=== PATIENT | female | born 1990 | race American Indian/Alaskan Native ===

== ENCOUNTER 2022-02-10 14:54 | Emergency (ER) | payer MEDICARE ==
[2022-02-10] MEDS ORDERED: SODIUM CHLORIDE 0.9% 1000 ML 1,000 ML IV ONE (15:48)
--- NOTE | 2022-02-10 15:59 | Emergency Department Report ---
ED Syncope HPI - General Chief Complaint: Syncope Stated Complaint: SYNCOPE Time Seen by Provider: 02/10/22 15:48 Source: patient Exam Limitations: no limitations - History of Present Illness Initial Comments: Patient is a 31-year-old female brought in by EMS after having an syncopal event while at dialysis. Patient states the event occurred while they were attempting to draw blood. States she began to feel hot and the next thing she remembers is EMS standing over her. She denies any previous history of syncope. Denies chest pain or shortness of breath. - Related Data Allergies/Adverse Reactions: Allergies No Known Allergies Allergy (Unverified 02/10/22 15:20) ED Review of Systems ROS: Stated complaint: SYNCOPE Other details as noted in HPI Comment: All other systems reviewed and negative Constitutional: denies: chills, fever Respiratory: denies: cough, shortness of breath, wheezing Cardiovascular: as per HPI. denies: chest pain, palpitations Gastrointestinal: denies: abdominal pain, nausea, diarrhea Musculoskeletal: denies: back pain, joint swelling, arthralgia Skin: denies: rash, lesions Psychiatric: denies: anxiety, depression ED Physical Exam - General Limitations: No Limitations General appearance: alert, in no apparent distress - Head Head exam: Present: atraumatic, normocephalic - Neck Neck exam: Present: normal inspection - Respiratory Respiratory exam: Present: normal lung sounds bilaterally. Absent: respiratory distress - Cardiovascular Cardiovascular Exam: Present: regular rate, normal rhythm, normal heart sounds. Absent: systolic murmur, diastolic murmur, rubs, gallop - GI/Abdominal GI/Abdominal exam: Present: soft. Absent: distended, tenderness - Neurological Exam Neurological exam: Present: alert, oriented X3 - Psychiatric Psychiatric exam: Present: normal affect, normal mood - Skin Skin exam: Present: warm, dry, intact, normal color ED Course Vital Signs 02/10/22 02/10/22 15:15 15:50 Temperature 98.3 F Pulse Rate 74 Respiratory 16 Rate Blood Pressure 127/90 [Left] O2 Sat by Pulse 99 100 Oximetry ED Medical Decision Making - Lab Data Result diagrams: 02/10/22 Unknown 02/10/22 Unknown - Medical Decision Making EKG normal sinus rhythm with rate of 67. No acute findings. Labs reviewed. Creatinine 12.6. Potassium is within normal limits. H&H is 10 and 30. Vital signs remained stable. Suspect likely vasovagal syncope as the patient was sitting down during the incident. She is stable for discharge home with return precautions. Critical care attestation.: If time is entered above; I have spent that time in minutes in the direct care of this critically ill patient, excluding procedure time. ED Disposition Clinical Impression: Syncope Disposition: 01 HOME / SELF CARE / HOMELESS Is pt being admited?: No Does the pt Need Aspirin: No Condition: Stable Instructions: Syncope (ED), Syncope Time of Disposition: 20:01
[2022-02-10 18:47] LABS: Basophils # (Auto) 0.1 K/mm3 (0.0-0.1); Basophils % (Auto) 0.9 % (0.0-1.8); Eosinophils # (Auto) 0.1 K/mm3 (0.0-0.4); Hemoglobin 9.9 gm/dl (10.1-14.3); Lymphocytes # (Auto) 2.9 K/mm3 (1.2-5.4); Mean Corpuscular HGB Conc 34 % (30-34); Mean Corpuscular Volume 86 fl (79-97); Monocytes # (Auto) 0.5 K/mm3 (0.0-0.8); Monocytes % (Auto) 5.1 % (0.0-7.3); Platelet Count 361 K/mm3 (140-440); Red Blood Count 3.36 M/mm3 (3.65-5.03); Red Cell Distribution Width 12.6 % (13.2-15.2)
[2022-02-10 19:06] LABS: Albumin 3.3 g/dL (3.9-5); Calcium 9.4 mg/dL (8.4-10.2)
[2022-02-10 20:44] VITALS: BP 125/70
--- NOTE | 2022-02-11 11:27 | Electrocardiograph Report ---
[facility] Test Date: 2022-02-10 Test Time: 16:26:08 Pat Name: KARI NAVARRETE Department: Room: Gender: F Stock Turner: [birth year] : 1990 Requested By: FRANKI RODRIGUEZ Order Number: [id number] Reading MD: Kiko Guerra Measurements Intervals [place] Rate: 67 P: 57 SD: 145 QRS: 19 QRSD: 71 T: 28 QT: 395 QTc: 418 Interpretive Statements Sinus rhythm Low voltage, precordial leads No previous ECG available for comparison Electronically Signed On 02-11-2022 11:27:07 EDT by Kiko Guerra
== END 2022-02-10 20:58 | disposition home or self-care (01) ==
LOC: ED 14:54
DX: R55 Syncope and collapse (principal); Z53.21 Procedure and treatment not carried out due to patient leaving prior to being seen by health care provider
CPT/HCPCS: 36415; 80053; 84484; 85025; 93005; 96360; 99284; J7030